=== PATIENT | female | born 1965 | race Two or more races ===

== ENCOUNTER → 2016-11-13 | Outpatient (CLI) | payer BC ==
--- NOTE | 2016-11-13 14:37 | DX ---
Lumbar spine upright AP and lateral 1007 hours. History: Chronic low back pain. Fell on ice September, Findings: Comparison to September 30, 2015. There is stable mild to moderate levoscoliosis upper lumbar spine. Vertebral body heights are well-ma intained. There is mild disk space narrowing along the inner aspect of the curvature along the right- side of L1-L2, L2-L3, and L3-L4. Intervertebral disk spaces are otherwise normal. No significant oste ophytes are seen. There are no lytic or sclerotic osseous lesions. Impression: 1. Stable mild to moderate levoscoliosis upper lumbar spine. There is associated disk space narrowing along the inner aspect of the curvature.
== END ==
LOC: FIMAGING 09:41
PROVIDERS: ATTEND Family Medicine
DX: M54.5 Low back pain (principal); M41.9 Scoliosis, unspecified; W00.9XXD Unspecified fall due to ice and snow, subsequent encounter